=== PATIENT | male | born 1935 | race Caucasian/White ===

== ENCOUNTER 2016-10-17 17:41 | Emergency (ER) | payer MEDICARE ==
[~2016-10-17] VITALS: Ht 177.8 cm; Wt 71.8 kg
[2016-10-17 17:49] VITALS: BP 163/67; PULSE 70; RESP 16; O2SAT 98
--- NOTE | 2016-10-17 19:12 | ED.REPORT ---
HPI-General Illness Date of Service Oct 17, 2016 ED Provider: Jane Castelan MD Patient is a 81 year old male with a hx of valvular heart disease who presents to the ED after his pacemaker alerted that he had been in atrial fibrillation since October 14. Through a series of phone calls his senior oracle database developer recommended he get an EKG but they were unable to get him into clinic so they told him to come to the ED. He reports the he was working hard in the yard on the but was asymptomatic. He denies SOB, chest pain, lower extremity swelling, or any other symptoms. He was seen in the ED on April 12 for bradycardia but was transferred to because we did not have the ability to interrogate it here. Nursing Notes Stated Complaint: HEART RATE Chief Complaint: Dysrhythmia/Cardiac Nursing Notes Reviewed: Yes Allergies: Coded Allergies: No Known Allergies (Unverified , 10/17/16) General Time Seen by MD: 19:03 Chief Complaint Other (afib ) Hx Obtained From: Patient, Primary care provider (senior oracle database developer ) Arrived By: Walk-in Severity: Current: No pain currently Severity: Maximum: No pain Past Medical History Past Medical History Hypertension Valvular heart disease Hyperlipidemia BPH Past Surgical History Heart valve replacement Reports: Pacemaker insertion Smoking History Former Smoker Social History Alcohol Use: "Social" Ambulatory Status Independent Review of Systems +asymptomatic afib Full Review of Systems Respiratory: Denies: Shortness of breath Cardiovascular: Denies: Chest pain Musculoskeletal: Denies: Extremity swelling Complete sys rev & neg: except as marked. Physical Exam Vital Signs Vital Signs Date Time Temp Pulse Resp B/P Pulse Ox O2 Delivery O2 Flow Rate FiO2 10/17/16 21:14 70 20 126/53 99 Room Air 10/17/16 20:54 70 20 139/51 96 Room Air 10/17/16 17:49 36.9 70 16 163/67 98 Room Air Initial VS: Reviewed General/Constitutional: Well-developed, Well-nourished Head / Eyes: Atraumatic, Normocephalic Neck: Full range of motion Abdomen / GI: Soft, Non-tender Skin: Warm, Dry Neurologic: Alert, Oriented, Nonfocal Psychiatric: Mood/affect normal, Behavior normal, Normal thought content Respiratory / Chest: Breath sounds NL, Breath sounds = bilat, No respiratory distress No crackles Cardiovascular: Heart sounds NL, Peripheral circulation NL, Pulses = bilaterally Interpretation & Diagnostics ECG Interpretation ECG Interpretation: Paced with a rate of 70 underlying rhythm is afib which is new since the 14 of October Time: 17:56 Interpreted by: ED physician Re-Eval/Medical Decision Time of Eval: 20:29 Re-Evaluation/Progress Note: Rechecked patient and discussed plan for anti-coagulation with close follow up. Discussed plan for discharge. Patient understands and agrees with plan. All questions addressed at this time. Consultation #1: Referral / Consult Name: David Luna MD Consulted With: Cardiology Call Returned at: 20:07 Note: Discussed pt's case. Suggests starting pt on Eliquis or Warfarin. Consultation #2: Referral / Consult Name: Denisa Segovia MD Consulted With: On-call physician Call Returned at: 20:23 Tube Balancer: Agrees with eval, Agrees with plan Note: Discussed pt's case with on-call for his PCP. Give him a dose of Eliquis tonight and will follow up with him. Consultation #3: Referral / Consult Name: Denisa Segovia MD Call Returned at: 20:35 Note: Pt has valvular heart disease and should be anti-coagulated with Warfarin. Counseled Regarding: Diagnosis, Lab results, Need for follow-up, When/why to return to ED Discharge & Departure Primary Impression: New onset atrial fibrillation Disposition: Home Discharge Condition All VS Reviewed: Yes Condition: Stable Additional Instructions: Thank you for entrusting us with your care. You went into atrial fibrillation on the 14 of October and I am glad you did not even notice. Your pacemaker is working well. You were given a dose of 5mg coumadin tonight. Your primary doctor will follow up with you to discuss further anti-coagulation. Expect a call from the [facility] tomorrow. Return to the emergency department if you experience new or worsening symptoms. Referrals: Emmanuel Keita MD (PCP) Scribe Attestation Portions of this note were transcribed by Danita Martin. IDr. Castelan personally performed the history, physical exam and medical decision-making; I reviewed and confirmed the accuracy of the information in the transcribed note. Signed by: Danita Martin 10/17/16, 2100 copies to: Emmanuel Keita MD, Shawna L MD Oct 17, 2016 19:11 DANITA MARTIN Oct 17, 2016 19:25
[2016-10-17 20:54] VITALS: BP 139/51; PULSE 70; RESP 20; O2SAT 96
[2016-10-17 21:14] VITALS: BP 126/53; PULSE 70; RESP 20; O2SAT 99
== END 2016-10-17 21:16 | disposition home or self-care (01) ==
LOC: SED 17:41
DX: I11.9 Hypertensive heart disease without heart failure (principal); I48.91 Unspecified atrial fibrillation; E78.5 Hyperlipidemia, unspecified; Z95.0 Presence of cardiac pacemaker; Z95.4 Presence of other heart-valve replacement; Z87.891 Personal history of nicotine dependence